=== PATIENT | female | born 1935 | race Caucasian/White ===

== ENCOUNTER 2017-10-06 13:14 | Inpatient (IN) | payer MEDICARE, BC ==
[~2017-10-06] VITALS: Ht 157.5 cm; Wt 75.9 kg
[~2017-10-06 13:14] MED LIST: ASMANEX0.24 GM INH; CALCIUM 600+D T1 TA1; CALCIUM 600+D T1 TA1 PO; COLACE100 MG; COLACE100 MG PO; DILAUDID2 MG PO; ELIQUIS2.5 MG PO; HYDROCHLOROTHIA25 MG PO; LISINOPRIL10 MG PO; MAG-OX 400 MG400 MG PO; MAGNESIUM GLUC500 M1 PO; PROTONIX20 MG PO; SINGULAIR10 MG PO; SODIUM BICARBO650 MG PO; TIAZAC/CARDIZE180 MG PO; TUMS500 MG; VENTOLIN HFA18 GM INH; VITAMIN C1000 MG PO; ZESTRIL10 MG PO
[2017-10-06 14:41] LABS: BASOPHILS 0.2 % (0-2); EOSINOPHILS 0 % (0-7); HEMATOCRIT 32.9 % (36.0-48.0); HEMOGLOBIN 10.8 g/dL (12-16); IMMATURE GRANULOCYTES 0.2 % (0-5); LYMPHOCYTES 17.4 % (15-50); MCH 32.8 pg (26.0-34.0); MCHC 32.8 g/dL (31.0-37.0); MEAN PLATELET VOLUME 10.6 fL (7.4-10.4); MONOCYTES 8.7 % (2-11); NEUTROPHILS 73.5 % (40-80); PLATELET COUNT 233 10x3/uL (130-400); RBC 3.29 10x6/uL (4.00-5.40); RDW 13.1 % (11.5-14.5); WBC 9.7 10x3/uL (4.8-10.8)
[2017-10-06 14:50] LABS: INR 1.22 (0.85-1.17)
[2017-10-06 15:20] LABS: ALBUMIN 3.6 g/dL (3.4-5.0); ANION GAP 15.8 mmol/L (8-16); BILIRUBIN - TOTAL 0.49 mg/dL (0.2-1.3); CARBON DIOXIDE 25.7 mmol/L (21.0-32.0); CREATININE - SERUM 1.7 mg/dL (0.6-1.3); POTASSIUM - SERUM 4.5 mmol/L (3.5-5.1); PROTEIN - SERUM 7.1 g/dL (6.4-8.2)
--- NOTE | 2017-10-06 15:26 | NUR ---
REC'D SITTING UP IN BED. ALERT AND ORIENTED X4. DENIES PAIN, BUT SAYS IT HURTS WHEN SHE COUGHS. HER COUGH IS FREQUENT BUT NOT PRODUCING ANYTHING. STARTED IV TO THE LEFT FORARM, IS PATENT, AND FLUSHES. FAXED MED ORDERS TO PHARM, AND ORDERD BLOOD WORK ORDERD. ORDERS ARE IN CHART. HAS A FRESH SCAR TO HER LEFT HAND FROM WHEN SHE HAD KNUCKLE SURGERY A FEW WEEKS AGO. WALKS OK. DID THE ADMISSION HISTORY AND MED REC, RESTARTED HOME MEDS. NO DISTRESS NOTED. INSTRUCTED TO CALL IF NEEDED ANYTHING, VERBALIZED UNDERSTANDING. AND DAUGHTER ARE AT BEDSIDE. WILL CONT TO MONITOR.
[2017-10-06 19:03] VITALS: BP 121/51; Ht 157.5 cm; Wt 75.9 kg
--- NOTE | 2017-10-06 19:15 | NUR ---
SHIFT REPORT COMPLETED.
[2017-10-06 20:00] VITALS: BP 131/47
--- NOTE | 2017-10-06 20:20 | NUR ---
[facility]
[2017-10-07] VITALS: BP 118/52
--- NOTE | 2017-10-07 00:46 | NUR ---
IN BED, EYE CLOSE, CALL LIGHT IN REACH.
--- NOTE | 2017-10-07 02:23 | NUR ---
LAYING ON RIGHT SIDE, HOB 30 DEGREE, CALL LIGHT IN REACH.
--- NOTE | 2017-10-07 02:52 | NUR ---
REST QUIETLY IN BED,CALL LIGHT IN REACH.
[2017-10-07 04:00] VITALS: BP 114/45
--- NOTE | 2017-10-07 04:14 | NUR ---
IV INFILTRATED, RESTART IV, 22G. PLACED IN RIGHT WRIST,ON 1ST ATTEMPT.
--- NOTE | 2017-10-07 04:14 | NUR ---
IV INFILTRATED, RESTART IV, 22G,PLACED IN RIGHT HAND, ON 1ST ATTEMPT.
--- NOTE | 2017-10-07 11:00 | NUR ---
BATH SUPPLIES PROVIDED TO PATIENT. PATIENT UP TO THE SHOWER WITHOUT ANY PROBLEMS NOTED. BED LINENS CHANGED.
[2017-10-07 11:04] VITALS: BP 129/57
[2017-10-07 13:32] VITALS: BP 95/54
--- NOTE | 2017-10-07 19:53 | NUR ---
REFUSED 199 BREATHING TX DUE TO NAUSEA AND PAIN
[2017-10-07 20:00] VITALS: BP 108/62
--- NOTE | 2017-10-07 20:22 | NUR ---
PATIENT IS AWAKE, ALERT AND ORIENTED X'S 4. RESPIRATIONS ARE EVEN AND UNLABORED ON ROOM AIR. NO SIGNS OF DISTRESS NOTED. DROPLET PRECAUTIONS MAINTAINED. PATIENT REQUESTED A CUP OF ICE, BROUGHT IT TO HER, SHE DENIES OTHER NEEDS.
[2017-10-08 04:00] VITALS: BP 131/66
--- NOTE | 2017-10-08 04:02 | NUR ---
PATIENT IS AWAKE AND ALERT. SHE STATED "THE STERIODS ARE KEEPING ME FROM SLEEPING." PATIENT DENIES NEEDS. NO SIGNS OF DISTRESS NOTED.
[2017-10-08 05:07] LABS: BASOPHILS 0 % (0-2); EOSINOPHILS 0 % (0-7); HEMATOCRIT 29.9 % (36.0-48.0); HEMOGLOBIN 9.7 g/dL (12-16); IMMATURE GRANULOCYTES 0.3 % (0-5); LYMPHOCYTES 7.8 % (15-50); MCH 32.7 pg (26.0-34.0); MCHC 32.4 g/dL (31.0-37.0); MCV 100.7 fL (80.0-100.0); MEAN PLATELET VOLUME 11.2 fL (7.4-10.4); MONOCYTES 3.7 % (2-11); NEUTROPHILS 88.2 % (40-80); PLATELET COUNT 218 10x3/uL (130-400); RBC 2.97 10x6/uL (4.00-5.40); RDW 13.8 % (11.5-14.5); WBC 10.5 10x3/uL (4.8-10.8)
[2017-10-08 05:28] LABS: ALBUMIN 2.9 g/dL (3.4-5.0); ANION GAP 17.9 mmol/L (8-16); BILIRUBIN - TOTAL 0.26 mg/dL (0.2-1.3); CALCIUM 8.3 mg/dL (8.5-10.1); CARBON DIOXIDE 20.8 mmol/L (21.0-32.0); MAGNESIUM - SERUM 1.8 mg/dL (1.8-2.4); PHOSPHOROUS 4.2 mg/dL (2.5-4.9); POTASSIUM - SERUM 4.7 mmol/L (3.5-5.1); PROTEIN - SERUM 6.2 g/dL (6.4-8.2)
--- NOTE | 2017-10-08 08:04 | NUR ---
PT SITTING ON SIDE OF BED, STATED SHE IS READY TO GO HOME AND HAS THINGS TO TAKE CARE OF, PT REQUESTED SHOWER AFTER BREAKFAST. NO SIGNS OF DISTRESS, CONTINUE WITH PLAN OF CARE
[2017-10-08 09:33] VITALS: BP 138/52
[2017-10-08 13:03] VITALS: BP 130/62
--- NOTE | 2017-10-08 13:41 | NUR ---
PT HERE FOR PNEUMONIA AND FLU FOR THIS VISIT PT DENIES NEEDS AT THIS TIME WILL CONTINUE TO MONITOR
[2017-10-08 16:32] VITALS: BP 134/60
--- NOTE | 2017-10-08 19:45 | NUR ---
A&O, DENIES NEEDS, LUNG SOUND CLEAR, NO DISTRESS NOTED, ANXIOUS TO GET HOME, CALL LIGHT IN REACH, ASSESSMENT COMPLETE, WILL CONTINUE TO MONITOR
[2017-10-08 20:00] VITALS: BP 120/51
--- NOTE | 2017-10-09 02:00 | NUR ---
PT IN BED WITH NO NEEDS AT THIS TIME. ISOLATION PRECAUTIONS ARE IN PLACE. SIDE RAILS X 2. BED IS LOW. CALL LIGHT IN REACH.
[2017-10-09 04:00] VITALS: BP 97/61
[2017-10-09 05:19] LABS: BASOPHILS 0 % (0-2); EOSINOPHILS 0 % (0-7); HEMATOCRIT 30.4 % (36.0-48.0); HEMOGLOBIN 9.9 g/dL (12-16); IMMATURE GRANULOCYTES 0.4 % (0-5); LYMPHOCYTES 8.6 % (15-50); MCH 32.6 pg (26.0-34.0); MCHC 32.6 g/dL (31.0-37.0); MEAN PLATELET VOLUME 11.1 fL (7.4-10.4); MONOCYTES 3.6 % (2-11); NEUTROPHILS 87.4 % (40-80); PLATELET COUNT 246 10x3/uL (130-400); RBC 3.04 10x6/uL (4.00-5.40); WBC 8.5 10x3/uL (4.8-10.8)
[2017-10-09 05:36] LABS: ANION GAP 13.9 mmol/L (8-16); CALCIUM 8.4 mg/dL (8.5-10.1); CARBON DIOXIDE 21.4 mmol/L (21.0-32.0); CREATININE - SERUM 2.1 mg/dL (0.6-1.3); POTASSIUM - SERUM 4.3 mmol/L (3.5-5.1)
--- NOTE | 2017-10-09 07:24 | NUR ---
PT IS SITTING IN BED AWAKE, STATED UNABLE TO SLEEP SINCE SHE HAS BEEN HERE DUE TO STEROIDS KEEPING HER UP. COUGH IS DEEP AND PRODUCTIVE, SLIGHT WHEEZING WITH EXHALATION IN UPPER LOBES, BED IN LOW POSITION, CL IN REACH. VOICED NO NEEDS AT THIS TIME. CONTINUE WITH PLAN OF CARE
[2017-10-09 07:55] VITALS: BP 148/78
--- NOTE | 2017-10-09 12:10 | NUR ---
PT RESTING IN ROOM, WAITING FOR LUNCH, DENIES NEEDS.
[2017-10-09] MEDS ORDERED: Levaquin PO (12:47)
[2017-10-09] MEDS ORDERED: BENZONATATE200 MG PO (12:47)
[2017-10-09] MEDS ORDERED: TAMIFLU75 MG PO (12:47)
[2017-10-09] MEDS ORDERED: FLORAJEN3 CAPS460 MG PO (12:48)
[2017-10-09] MEDS ORDERED: MUCINEX600 MG PO (12:48)
[2017-10-09] MEDS ORDERED: ROBITUSSIN DM 110 ML PO (12:48)
[2017-10-09] MEDS ORDERED: PREDNISONE10 MG PO (12:49)
--- NOTE | 2017-10-09 13:46 | NUR ---
Patient Name: FADI MCKEE Admission Status: Elective Accout number: [id number] Admission Date: 10-06-2017 : 1935 Admission Diagnosis:FLU DUE TO UNIDENTIFIED FLU VIRUS W UNSP TYPE OF PNEUMO Attending: NIGHAT GANN Current LOS: 3 Anticipated DC Date: 10-09-2017 Planned Disposition: Home Primary Insurance: MEDICARE A & B Discharge Planning Comments: CM MET WITH PATIENT REGARDING D/C NEEDS AND PLANS. PATIENT IS DISCHARGING TODAY. PATIENT STATED SHE LIVES WITH HER SPOUSE AND THEY DO NOT HAVE ANY STEPS OR STAIRS AT HOME. PATIENT STATED HER DAUGHTER (MELANIE) WILL DRIVE HER HOME TODAY AT DISCHARGE. PATIENT IS INDEPENDENT WITH HER CARE AND HAS A WALKER, WHEELCHAIR, AND SHOWER CHAIR AT HOME IF NEEDED. PATIENTS PCP IS DR. GANN AND PHARMAC[facility] IS [facility] [address] PATIENT REFUSED HOME HEALTH BUT WILL HAVE HOUSE CALLS. CM WILL CONTINUE TO FOLLOW PATIENT WITH D/C NEEDS AND PLANS. PCP DR[address] AZEEM WHELAN [address] [phone] MELANIE JORGE (DAUGHTER) [phone] Shank Piece Tacker: Aster Emanuel Is the patient Alert and Oriented? Yes 0 * How many steps to enter\exit or inside your home? 0 0 * PCP DR. GANN 0 * [facility] [address] 0 * Preadmission Environment Home with Family 0 * ADLs Independent 0 * Equipment Shower Chair Walker Wheelchair 0 * List name and contact numbers for known caregivers / representatives who currently or will assist patient after discharge: MELANIE JORGE (DAUGHTER) [phone] 0 * Community resources currently utilized None 0 * Additional services required to return to the preadmission environment? Yes 0 * Can the patient safely return to the preadmission environment? Yes 0 * Has this patient been hospitalized within the prior 30 days at any hospital? No 0 Grand Total: 0
--- NOTE | 2017-10-09 15:08 | NUR ---
PT DC HOME, WENT OVER DC INSTYRUCTIONS, PT WAS WHEELED DOWN BY VOLUNTEER AND DAUGHTER PICKED PT UP OUT FRONT.
== END 2017-10-09 15:09 | disposition home or self-care (01) | DRG 194 ==
LOC: D.MS 13:14
PROVIDERS: Family Medicine; ADMIT Family Medicine
DX: J11.00 Influenza due to unidentified influenza virus with unspecified type of pneumonia (principal); J45.901 Unspecified asthma with (acute) exacerbation; J20.9 Acute bronchitis, unspecified; I12.9 Hypertensive chronic kidney disease with stage 1 through stage 4 chronic kidney disease, or unspecified chronic kidney disease; N18.9 Chronic kidney disease, unspecified; I48.91 Unspecified atrial fibrillation; K21.9 Gastro-esophageal reflux disease without esophagitis; D64.9 Anemia, unspecified; R07.81 Pleurodynia

== ENCOUNTER 2017-12-30 03:59 | Emergency (ER) | payer MEDICARE, BC ==
[2017-10-06 19:03] VITALS: BMI 30.6
[~2017-12-30 03:59] MED LIST changes: +BENZONATATE200 MG PO; +FLORAJEN3 CAPS460 MG PO; +Levaquin PO; +MUCINEX600 MG PO; +PREDNISONE10 MG PO; +ROBITUSSIN DM 110 ML PO; +TAMIFLU75 MG PO
== END 2017-12-30 06:05 | disposition home or self-care (01) ==
LOC: D.ER 03:59
DX: M62.838 Other muscle spasm (principal); I10 Essential (primary) hypertension

== ENCOUNTER 2018-08-21 21:44 | Inpatient (IN) | payer MEDICARE, BC ==
[~2018-08-21] VITALS: Ht 157.5 cm; Wt 77.8 kg
--- NOTE | ~2018-08-21 | EC ---
PATIENT:FADI MCKEE MARCH DATE OF SERVICE: 08/21/18 SEX: F MEDICAL RECORD: [id number] DATE OF : [birth year] LOCATION:D.M2 D.213 AGE OF PATIENT: 83 ADMISSION DATE: 08/21/18 REFERRING PHYSICIAN: INTERPRETING PHYSICIAN: CYNTHIA LAROSE MD ECHOCARDIOGRAM REPORT ECHO CHARGES 4 ECHO COMPLETE Date: 08/22/18 CLINICAL DIAGNOSIS: CHF/AFIB ECHOCARDIOGRAPHIC MEASUREMENTS (adult normal given) AC root (d.<3.7cm) 2.9 cm LV Septum d (<1.2 cm> 1.4 cm Valve Excursion 1.3 cm LV Septum (systole) 1.6 cm Left Atria (s.<4.0cm> 4.4 cm LVPW d(<1.2cm) 1.9 cm RV (d.<2.3cm) 3.6 cm LVPW (sytole) 2.0 cm LV diastole(<5.6CM) 5.3 cm MV E-F(>70mm/sec) cm LV systole 3.6 cm LVOT Diameter 1.5 cm MV exc.(>10mm) cm Est.ejection fraction (50-75%) % DOPPLER: LVIT cm/sec A 103 cm/sec E 152 cm/sec LA cm/sec RVSP 48 mmHg LVOT 211 cm/sec AOP1/2T m/s Asc. Ao 224 cm/sec RVOT 108 cm/sec RA cm/sec PA 169 cm/sec AV Gradient Peak 20.10mmHg AV Mean 11.00mmHg AV Area 1.6 cm MV Gradient Peak 11.93mmHg MV Mean 3.17 mmHg MV Area cm COMMENTS: Samples And Repairs Preparer: 2 DRE WILD [employer] Shop Supervisor: 3 Dr. Pearl TAPE# PACS Pericardial Effusion N DATE OF SERVICE: Adequate 2D, color flow, spectral Doppler, and M-mode. Borderline LVH. LV internal dimension is normal. Wall motion is normal. EF is greater than or equal to 55%. Aortic valve is tricuspid. No evidence of stenosis by Doppler interrogation. Left atrium mildly dilated at 4.4 cm. Mitral valve is thickened. Mild MR. Right-sided chambers is normal. Mild TR. TRANSINT:[id number] Voice Confirmation ID: [id number] DOCUMENT ID: [id number] ECHOCARDIOGRAM REPORT [id number] FADI MCKEE GREGORY A MD at 1418 CC: [id number] DICTATION DATE: 08/22/18 162 PULP MAKER: 08/22/18 2256 DIS IN 08/25/18 [place] [id number] [place] [id number]
--- NOTE | ~2018-08-21 | MORECARE ---
CASE MANAGEMENT DISCHARGE SUMMARY PATIENT: FADI MCKEE UNIT: [id number] ADM DATE: 08/21/18 AGE: 83 : 35 SEX: F ROOM/BED: D.2137 AUTHOR: ERNESTINE CHAUDHRY PHYSICIAN: REFERRING PHYSICIAN: DARYL OWEN MD DATE OF SERVICE: 08/26/18 Discharge Plan Patient Name: FADI MCKEE Facility: [facility]:[place] : 1935 Planned Disposition: Home Anticipated Discharge Date: 08/25/18 Discharge Date: 08/25/2018 Expected LOS: 4 Initial Reviewer: [email or web address] Initial Review Date: 08/26/2018 Generated: 08/26/18 10:32 am Patient Name: FADI MCKEE Page [id number] at 0932 All edits/amendments must be made on the electronic document DICTATION DATE: 08/26/18930 YARN WASHER: [email or web address] 08/26/18930 RPT#: [id number] DC DATE:08/25/18 STATUS: DIS IN [facility] [address] [place] [address] END OF REPORT
[2018-08-21] MEDS ORDERED: FLAGYL500 MG PO (22:07)
[2018-08-21] MEDS ORDERED: CIPRO250 MG PO (22:07)
[2018-08-21] MEDS ORDERED: TUMS X-STR300 MG PO (22:10)
[2018-08-21] MEDS ORDERED: COLACE100 MG PO (22:10)
[2018-08-21 23:00] LABS: BASOPHILS 0.1 % (0-2); EOSINOPHILS 1.8 % (0-7); HEMATOCRIT 28.5 % (36.0-48.0); IMMATURE GRANULOCYTES 0.7 % (0-5); LYMPHOCYTES 36.5 % (15-50); MCH 32.7 pg (26.0-34.0); MCHC 35.1 g/dL (31.0-37.0); MCV 93.1 fL (80.0-100.0); MEAN PLATELET VOLUME 10.6 fL (7.4-10.4); NEUTROPHILS 45.9 % (40-80); PLATELET COUNT 245 10x3/uL (130-400); RBC 3.06 10x6/uL (4.00-5.40); WBC 8.1 10x3/uL (4.8-10.8)
[2018-08-21 23:21] LABS: APPEARANCE HAZY (CLEAR); BILIRUBIN NEGATIVE (NEGATIVE); COLOR DK YELLOW (YELLOW); GLUCOSE NEGATIVE (NEGATIVE); KETONE NEGATIVE (NEGATIVE); NITRITE NEGATIVE (NEGATIVE); PROTEIN 1+ mg/dL (NEGATIVE); UROBILINOGEN NORMAL (NORMAL)
[2018-08-21 23:22] LABS: ALBUMIN 3.4 g/dL (3.4-5.0); ANION GAP 19.7 mmol/L (8-16); BILIRUBIN - TOTAL 0.38 mg/dL (0.2-1.3); CALCIUM 7.3 mg/dL (8.5-10.1); CARBON DIOXIDE 23.9 mmol/L (21.0-32.0); CREATININE - SERUM 11.9 mg/dL (0.6-1.3); PROTEIN - SERUM 6.3 g/dL (6.4-8.2)
[2018-08-21 23:22] LABS: BACTERIA FEW /hpf (NONE SEEN); EPITHELIAL CELLS 0-5 /hpf (0-5); RED CELLS - URINE 0-5 /hpf (0-5); WHITE CELLS - URINE 0-5 /hpf (0-5)
[2018-08-21 23:26] LABS: POTASSIUM - SERUM 2.6 mmol/L (3.5-5.1)
[2018-08-22] VITALS (8 sets, daily range): BP systolic 82–90; BP diastolic 35–66; Ht 157.5 cm; Wt 77.8 kg
[2018-08-22 05:43] LABS: BASOPHILS 0.2 % (0-2); IMMATURE GRANULOCYTES 0.7 % (0-5); LYMPHOCYTES 40.5 % (15-50); MCH 32.7 pg (26.0-34.0); MCHC 35.2 g/dL (31.0-37.0); MCV 92.7 fL (80.0-100.0); MEAN PLATELET VOLUME 10.9 fL (7.4-10.4); NEUTROPHILS 44.6 % (40-80); RBC 2.45 10x6/uL (4.00-5.40); RDW 12.9 % (11.5-14.5)
[2018-08-22 05:58] LABS: HEMATOCRIT 22.7 % (36.0-48.0); PLATELET COUNT 192 10x3/uL (130-400)
[2018-08-22 06:05] LABS: BILIRUBIN - TOTAL 0.3 mg/dL (0.2-1.3); CARBON DIOXIDE 22.1 mmol/L (21.0-32.0); CREATININE - SERUM 10.8 mg/dL (0.6-1.3); PROTEIN - SERUM 5.2 g/dL (6.4-8.2)
[2018-08-22 06:23] LABS: ALBUMIN 2.5 g/dL (3.4-5.0); ANION GAP 17.6 mmol/L (8-16)
[2018-08-22 06:27] LABS: CALCIUM 6.5 mg/dL (8.5-10.1); POTASSIUM - SERUM 2.7 mmol/L (3.5-5.1)
[2018-08-22 09:53] LABS: % SATURATION 24 % (15-55); IRON 42 ug/dl (35-150); TOTAL IRON BIND CAPACITY 170 ug/dl (260-445); UNSAT IRON BIND CAPACITY 128 ug/dl (150-375)
[2018-08-23 01:18] VITALS: BP 92/40
[2018-08-23 02:28] VITALS: BP 94/50
[2018-08-23 05:48] LABS: INR 1.33 (0.85-1.17)
[2018-08-23 05:49] LABS: HEMOGLOBIN 9.6 g/dL (12-16); MCH 31.9 pg (26.0-34.0); MCHC 34.8 g/dL (31.0-37.0); MCV 91.7 fL (80.0-100.0); PLATELET COUNT 175 10x3/uL (130-400); RDW 15.1 % (11.5-14.5); WBC 6.1 10x3/uL (4.8-10.8)
[2018-08-23 05:52] LABS: HEMATOCRIT 27.6 % (36.0-48.0); RBC 3.01 10x6/uL (4.00-5.40)
[2018-08-23 06:00] LABS: ANION GAP 19.8 mmol/L (8-16); CARBON DIOXIDE 18.4 mmol/L (21.0-32.0); CREATININE - SERUM 9.8 mg/dL (0.6-1.3); POTASSIUM - SERUM 4.2 mmol/L (3.5-5.1)
[2018-08-23 06:15] VITALS: BP 90/48
[2018-08-23 06:16] LABS: CALCIUM 6.9 mg/dL (8.5-10.1)
[2018-08-23 08:20] LABS: FOLATE (FOLIC ACID) - SERUM 8.9 ng/mL (>3.0)
[2018-08-23 13:13] VITALS: BP 89/69
[2018-08-23 21:07] VITALS: BP 110/50
[2018-08-24] VITALS: BP 110/47
[2018-08-24 04:00] VITALS: BP 112/51
[2018-08-24 05:39] LABS: BASOPHILS 0.2 % (0-2); EOSINOPHILS 1.6 % (0-7); HEMATOCRIT 29.9 % (36.0-48.0); IMMATURE GRANULOCYTES 0.7 % (0-5); LYMPHOCYTES 30.4 % (15-50); MCH 31.5 pg (26.0-34.0); MCHC 33.4 g/dL (31.0-37.0); MEAN PLATELET VOLUME 10.8 fL (7.4-10.4); MONOCYTES 13.8 % (2-11); NEUTROPHILS 53.3 % (40-80); PLATELET COUNT 208 10x3/uL (130-400); RBC 3.17 10x6/uL (4.00-5.40); RDW 15.2 % (11.5-14.5); WBC 5.8 10x3/uL (4.8-10.8)
[2018-08-24 05:44] LABS: MCV 94.3 fL (80.0-100.0)
[2018-08-24 07:23] LABS: ANION GAP 17.2 mmol/L (8-16); CALCIUM 7.7 mg/dL (8.5-10.1); CARBON DIOXIDE 18.7 mmol/L (21.0-32.0); POTASSIUM - SERUM 3.9 mmol/L (3.5-5.1)
[2018-08-24 07:25] LABS: CREATININE - SERUM 5.3 mg/dL (0.6-1.3)
[2018-08-24 09:04] VITALS: BP 112/88
[2018-08-24 12:10] LABS: HEPATITIS C ANTIBODY <0.1 (0.0-0.9)
[2018-08-24 13:05] VITALS: BP 115/80
[2018-08-24 15:57] VITALS: BP 113/86
[2018-08-24 21:06] VITALS: BP 130/57
[2018-08-25 01:00] VITALS: BP 146/83
[2018-08-25 05:56] LABS: BASOPHILS 0.1 % (0-2); EOSINOPHILS 0.6 % (0-7); HEMATOCRIT 28.4 % (36.0-48.0); HEMOGLOBIN 9.4 g/dL (12-16); IMMATURE GRANULOCYTES 0.4 % (0-5); MCH 31.5 pg (26.0-34.0); MCHC 33.1 g/dL (31.0-37.0); MCV 95.3 fL (80.0-100.0); MONOCYTES 11.1 % (2-11); NEUTROPHILS 70.8 % (40-80); PLATELET COUNT 217 10x3/uL (130-400); RBC 2.98 10x6/uL (4.00-5.40); RDW 15.5 % (11.5-14.5)
[2018-08-25 06:04] LABS: WBC 8.5 10x3/uL (4.8-10.8)
[2018-08-25 06:05] LABS: ANION GAP 16.5 mmol/L (8-16); CALCIUM 8.1 mg/dL (8.5-10.1); CARBON DIOXIDE 18.4 mmol/L (21.0-32.0); POTASSIUM - SERUM 3.9 mmol/L (3.5-5.1)
[2018-08-25 06:07] LABS: CREATININE - SERUM 3.2 mg/dL (0.6-1.3)
[2018-08-25 06:12] VITALS: BP 113/49
[2018-08-25 08:24] VITALS: BP 103/34
[2018-08-25] MEDS ORDERED: FLAGYL500 MG PO (09:23)
[2018-08-25] MEDS ORDERED: PEPCID40 MG PO (09:25)
[2018-08-25] MEDS ORDERED: FLORANEX / LACT1 TAB PO (09:25)
[2018-08-25] MEDS ORDERED: VENTOLIN HFA18 GM INH (11:04)
[2018-08-25 11:08] VITALS: BP 121/48
== END 2018-08-25 12:32 | disposition home or self-care (01) | DRG 683 ==
LOC: D.ER 21:44 → D.M2 23:56
PROVIDERS: Family Medicine; Internal Medicine Nephrology
DX: N17.9 Acute kidney failure, unspecified (principal); A04.72 Enterocolitis due to Clostridium difficile, not specified as recurrent; E87.1 Hypo-osmolality and hyponatremia; E46 Unspecified protein-calorie malnutrition; D63.1 Anemia in chronic kidney disease; E86.0 Dehydration; E87.6 Hypokalemia; I12.9 Hypertensive chronic kidney disease with stage 1 through stage 4 chronic kidney disease, or unspecified chronic kidney disease; N18.9 Chronic kidney disease, unspecified; I48.91 Unspecified atrial fibrillation; K21.9 Gastro-esophageal reflux disease without esophagitis; Z68.30 Body mass index [BMI] 30.0-30.9, adult